=== PATIENT | male | born 1985 | race Caucasian/White ===

== ENCOUNTER 2025-02-22 12:23 | Day surgery (SDC) | payer BC ==
[2025-02-22] MEDS: Lactated Ringers 1,000 ML IV SCH (12:57)
[2025-02-22] MEDS ORDERED: Ketamine 200 MG/20 ML MDV ONE (13:12)
[2025-02-22] MEDS ORDERED: fentaNYL 50 MCG/ML SDV ONE (13:12)
[2025-02-22] MEDS ORDERED: Propofol 200 MG/20 ML SDV ONE (13:12)
[2025-02-22] MEDS ORDERED: Midazolam 1 MG/ML 2 ML SDV ONE (13:12)
[2025-02-22] MEDS ORDERED: Flumazenil 0.1 MG/ML 5 ML MDV ONE (13:12)
== END 2025-02-22 14:28 | disposition home or self-care (01) ==
LOC: CC.SDS 12:23
PROVIDERS: ATTEND Family Medicine
DX: D12.0 Benign neoplasm of cecum (principal); K64.8 Other hemorrhoids
CPT/HCPCS: 00811; J2003; J2250; J2704; J3010; J3490; J7120